=== PATIENT | female | born 1970 | race Caucasian/White ===

== ENCOUNTER → 2023-10-06 | Outpatient (REF) | LOC: M SLEEP HO 10:00 | PROVIDERS: ATTEND Physician Assistant | DX: Z53.9 Procedure and treatment not carried out, unspecified reason (principal); G47.33 Obstructive sleep apnea (adult) (pediatric) ==

== ENCOUNTER → 2024-07-19 | Outpatient (REF) | LOC: M SLEEP HO 11:00 | PROVIDERS: ATTEND Physician Assistant | DX: G47.33 Obstructive sleep apnea (adult) (pediatric) (principal) ==

== ENCOUNTER 2025-01-27 10:16 | Inpatient (IN) | payer MEDICARE, OTHER, SELFPAY ==
[2025-01-27] VITALS (97 sets, daily range): BP systolic 79–176; BP diastolic 41–95; TEMP 98.8–101.1; O2SAT 50–100
[~2025-01-27] VITALS: Ht 162.6 cm; Wt 81.1 kg
[2025-01-27] MEDS ORDERED: CALCIUM GLUCONATE 1,000MG/10ML VIAL (100MG/ML) As Ordered ONE (13:15)
[2025-01-27] MEDS: CALCIUM GLUCONATE 1,000MG/10ML VIAL (100MG/ML) IV ONE ×2 (13:15→13:20)
[2025-01-27] MEDS ORDERED: SODIUM BICARBONATE 8.4% INJ 50ML SYRINGE As Ordered ONE (13:15)
[2025-01-27] MEDS ORDERED: EPINEPHrine HCL INJ 1 MG in D5W 240 ML IV SCH (13:25)
[2025-01-27] MEDS ORDERED: MIDAZOLAM INJ 2MG/2ML VIAL IV SCH (13:25)
[2025-01-27] MEDS ORDERED: EPINEPHrine HCL INJ 16 MG in D5W 984 ML IV SCH (13:35)
[2025-01-27 13:54] LABS: ABG pH (ARTERIAL) 7.272 UNITS (7.350-7.450)
[2025-01-27 13:55] LABS: ABG BASE EXCESS -5.3 (-2.0-2.0); ABG HCO3 21.6 MMOL/L (22.0-26.0); ABG PARTIAL PRESSURE CO2 47.9 mmHg (35.0-45.0); ABG PARTIAL PRESSURE O2 74.9 mmHg (75.0-100.0); ABG TOTAL CO2 23.1 MMOL/L (22.0-29.0)
[2025-01-27 13:56] LABS: ABG O2 SATURATION 94.4 % (95.0-99.0)
[2025-01-27] MEDS ORDERED: MIDAZOLAM 100MG/100ML-0.9%NACL 100 MG in IV 1 EA IV SCH (14:00)
[2025-01-27 14:09] LABS: HEMATOCRIT 33.8 % (36.0-47.0); HEMOGLOBIN 11.4 g/dl (12.0-15.5); LYMPH # 0.2 10^3/uL (1.5-5.0); LYMPH % 20.4 % (24.0-44.0); MEAN CORPUSCULAR HEMOGLOBIN 27.5 pg (27.0-33.0); MEAN CORPUSCULAR HGB CONC 33.7 g/dl (32.0-36.5); MEAN CORPUSCULAR VOLUME 81.4 fl (80.0-96.0); MONO % 3.9 % (2.0-8.0); NEUTROPHILS % 73.7 % (36.0-66.0); PLATELET COUNT, AUTOMATED 133 10^3/uL (150-450); RED BLOOD COUNT 4.15 10^6/uL (4.00-5.40)
[2025-01-27 14:10] LABS: NEUTROPHILS # 0.8 10^3/uL (1.5-8.5)
[2025-01-27 14:19] LABS: INR 1.18; PROTHROMBIN TIME 15.3 SECONDS (12.5-14.5)
[2025-01-27 14:31] LABS: MAGNESIUM LEVEL 1.5 MG/DL (1.8-2.4)
[2025-01-27 14:34] LABS: THYROID STIMULATING HORMONE 0.768 uIU/ML (0.55-4.78)
[2025-01-27 14:46] LABS: BILIRUBIN,TOTAL 0.3 MG/DL (0.3-1.2); CALCIUM LEVEL 8.1 MG/DL (8.5-10.1); CREATININE FOR GFR 2.53 MG/DL (0.55-1.30); GLOMERULAR FILTRATION RATE 21.1 (>51); POTASSIUM SERUM 3.4 MMOL/L (3.5-5.1); TOTAL PROTEIN 4.7 G/DL (5.7-8.2)
[2025-01-27 15:14] LABS: KETONE, URINE AUTO RFX NEGATIVE (NEGATIVE); LEUKOCYTE ESTERASE UR AUTO RFX NEGATIVE (NEGATIVE); MUCUS, URINE RFX SMALL (NEGATIVE); NITRITE, URINE AUTO RFX NEGATIVE (NEGATIVE); RBC, URINE AUTO RFX 19 /HPF (0-3); SQUAM EPITHELIAL CELL UR AURFX 0 /HPF (0-6); WBC, URINE AUTO RFX 0 /HPF (0-3)
[2025-01-27] MEDS ORDERED: GLUCAGON INJ 1MG VIAL SC PRN (15:40)
[2025-01-27] MEDS ORDERED: DEXTROSE 50% 50ML SYRINGE IV PRN (15:40)
[2025-01-27] MEDS ORDERED: GLUCOSE 4 GM CHEW PO PRN (15:40)
[2025-01-27] MEDS: PIPERACILLIN/TAZOBACTAM SOD 4.5 GM in DEXTROSE 5% (D5W) ADV/MINI-BAG 50 ML IV SCH (15:44)
[2025-01-27] MEDS: MAG SULF 1GM/100ML (MAG RUN) 1 GM in IV 1 EA IV SCH (15:45)
[2025-01-27] MEDS: LR 1,000 ML IV ONE (15:57)
[2025-01-27] MEDS: NOREPINEPHRINE 4MG IN D5 250ML 4 MG in IV 1 EA IV SCH (15:58)
[2025-01-27] MEDS: SODIUM BICARBONATE 8.4% INJ 50ML SYRINGE IV STA (15:58)
[2025-01-27] MEDS ORDERED: FENTANYL DRIP LOCK BOX KEY 1 EACH XX PRN (16:20)
[2025-01-27] MEDS: CALCIUM GLUCONATE 1,000 MG in DEXTROSE 5% (D5W) MINI-BAG PLU 100 ML IV SCH (16:37)
[2025-01-27] MEDS ORDERED: VITA200020 PO (17:05)
[2025-01-27] MEDS ORDERED: LOSA25TA13 PO (17:05)
[2025-01-27] MEDS ORDERED: ALBU8.5H INH (17:05)
[2025-01-27] MEDS ORDERED: CYCL-707 PO (17:05)
[2025-01-27] MEDS ORDERED: B-12100010 PO (17:05)
[2025-01-27] MEDS ORDERED: ALLO100T PO (17:05)
[2025-01-27] MEDS ORDERED: FAMO1TAB11 PO (17:05)
[2025-01-27] MEDS ORDERED: RA N1TAB PO (17:05)
[2025-01-27] MEDS ORDERED: OMEG-28 PO (17:05)
[2025-01-27] MEDS ORDERED: AMIT100TA PO (17:05)
[2025-01-27] MEDS ORDERED: TRAZ-257 PO (17:05)
[2025-01-27] MEDS ORDERED: METF10004 PO (17:05)
[2025-01-27] MEDS ORDERED: FERR325T3 PO (17:05)
[2025-01-27] MEDS ORDERED: GABA-1635 PO (17:05)
[2025-01-27] MEDS ORDERED: FLON1SPR NARES (17:05)
[2025-01-27] MEDS ORDERED: PARO40TA2 PO (17:05)
[2025-01-27] MEDS ORDERED: MECL-86 PO (17:05)
[2025-01-27] MEDS ORDERED: ATOR80TA59 PO (17:05)
[2025-01-27] MEDS ORDERED: ONDA-83 PO (17:05)
[2025-01-27] MEDS ORDERED: FLAX1CAP5 PO (17:05)
[2025-01-27] MEDS ORDERED: JARD1TAB3 PO (17:05)
[2025-01-27] MEDS ORDERED: LEVOTAB10 PO (17:05)
[2025-01-27] MEDS ORDERED: ASPI-615 PO (17:05)
[2025-01-27] MEDS ORDERED: HOME MED LIST COMPLETE! XX SCH (17:10)
[2025-01-27] MEDS ORDERED: CALCIUM GLUCONATE 1,000 MG in DEXTROSE 5% (D5W) MINI-BAG PLU 100 ML IV ONE (17:15)
[2025-01-27] MEDS: INSULIN LISPRO (NovoLOG) PER UNIT SC SCH (17:18)
[2025-01-27] MEDS: VANCOMYCIN HCL 1,000 MG, VIAL MATE ADAPTER 1 EACH in NS 250 ML IV ONE (17:19)
[2025-01-27 17:23] LABS: ABG O2 SATURATION 95.3 % (95.0-99.0)
[2025-01-27 17:26] LABS: ABG BASE EXCESS -7.3 (-2.0-2.0); ABG HCO3 20.6 MMOL/L (22.0-26.0); ABG PARTIAL PRESSURE CO2 51.1 mmHg (35.0-45.0); ABG STANDARD HCO3 18.6 MMOL/L. (22.0-26.0); ABG TOTAL CO2 22.2 MMOL/L (22.0-29.0)
[2025-01-27 17:27] LABS: ABG pH (ARTERIAL) 7.224 UNITS (7.350-7.450)
[2025-01-27] MEDS ORDERED: VANCOMYCIN INTERMITTENT/PULSE DOSING BY CLINICAL PHARMACIST PER DOSING PROTOCOL XX SCH (19:00)
[2025-01-27] MEDS: PANTOPRAZOLE 40MG VIAL IV ONE (19:00)
[2025-01-27] MEDS: KCL 20MEQ IN 100ML SWI (KRUN) 20 MEQ in IV 1 EA IV ONE (19:00)
[2025-01-27 19:09] LABS: ABG O2 SATURATION 93.5 % (95.0-99.0); ABG PARTIAL PRESSURE O2 67.8 mmHg (75.0-100.0); ABG STANDARD HCO3 19.5 MMOL/L. (22.0-26.0); ABG TOTAL CO2 22.4 MMOL/L (22.0-29.0); ABG pH (ARTERIAL) 7.267 UNITS (7.350-7.450)
[2025-01-27 19:15] LABS: HEMATOCRIT 33.5 % (36.0-47.0); HEMOGLOBIN 11.4 g/dl (12.0-15.5); MEAN CORPUSCULAR HEMOGLOBIN 28.1 pg (27.0-33.0); MEAN CORPUSCULAR VOLUME 82.7 fl (80.0-96.0); RED BLOOD COUNT 4.05 10^6/uL (4.00-5.40); WHITE BLOOD COUNT 1.6 10^3/uL (4.0-10.0)
[2025-01-27 19:40] LABS: PLATELET COUNT, AUTOMATED 85 10^3/uL (150-450)
[2025-01-27 19:42] LABS: ALBUMIN 1.9 G/DL (3.2-5.2); BILIRUBIN,TOTAL 0.3 MG/DL (0.3-1.2); CALCIUM LEVEL 8.1 MG/DL (8.5-10.1); CREATININE FOR GFR 2.13 MG/DL (0.55-1.30); GLOMERULAR FILTRATION RATE 25.7 (>51); POTASSIUM SERUM 3.8 MMOL/L (3.5-5.1); TOTAL PROTEIN 4.9 G/DL (5.7-8.2)
[2025-01-27 20:04] LABS: ATYPICAL LYMPH 2 % (0-5); BASOPHILS 1 % (0-1); DOHLE BODIES 1+; LYMPHOCYTES 21 % (16-44); METAMYELOCYTES 10 % (0-0); MONOCYTES 6 % (0-5); MYELOCYTES 3 % (0-0); NEUTROPHILS 39 % (28-66); PLATELET ESTIMATE DECREASED (NORMAL); TOXIC VACUOLATION 1+
[2025-01-27] MEDS: VASOPRESSIN IN 0.9 % NACL 20 UNIT in IV 1 EA IV SCH (20:10)
[2025-01-27] MEDS: VANCOMYCIN HCL 500 MG in DEXTROSE 5% (D5W) MINI-BAG PLU 100 ML IV ONE (20:12)
[2025-01-27] MEDS: OSELTAMIVIR 6 MG/ML SUSP PO ONE (20:16)
[2025-01-27] MEDS: HEPARIN SOD (PORCINE) 5000UNITS/ML 1ML VIAL/SYRINGE SQ SCH (21:53)
[2025-01-27] MEDS: PIPERACILLIN/TAZOBACTAM SOD 3.375 GM in DEXTROSE 5% (D5W) ADV/MINI-BAG 50 ML IV SCH (22:11)
[2025-01-27] MEDS: ACETAMINOPHEN *IV* 1,000 MG in IV 1 EA IV ONE (23:59)
[2025-01-28] VITALS (60 sets, daily range): BP systolic 77–158; BP diastolic 41–60; TEMP 100–101.8; O2SAT 86–100
[2025-01-28] MEDS: MIDAZOLAM 100MG/100ML-0.9%NACL 100 MG in IV 1 EA IV SCH (03:06)
[2025-01-28 04:29] LABS: IONIZED CALCIUM 4.4 MG/DL (4.5-5.3)
[2025-01-28 04:34] LABS: HEMATOCRIT 34.5 % (36.0-47.0); HEMOGLOBIN 11.8 g/dl (12.0-15.5); MEAN CORPUSCULAR HEMOGLOBIN 27.6 pg (27.0-33.0); MEAN CORPUSCULAR HGB CONC 34.2 g/dl (32.0-36.5); MEAN CORPUSCULAR VOLUME 80.8 fl (80.0-96.0); RED BLOOD COUNT 4.27 10^6/uL (4.00-5.40); WHITE BLOOD COUNT 6.1 10^3/uL (4.0-10.0)
[2025-01-28 04:40] LABS: PLATELET COUNT, AUTOMATED 78 10^3/uL (150-450)
[2025-01-28 04:57] LABS: VANCOMYCIN RANDOM 18.3 UG/ML
[2025-01-28 05:00] LABS: ALBUMIN 1.7 G/DL (3.2-5.2); ALKALINE PHOSPHATASE 86 U/L (35-104); ALT/SGPT 21 U/L (7.0-40); AST/SGOT 51 U/L (<34); BILIRUBIN,TOTAL 0.3 MG/DL (0.3-1.2); BLOOD UREA NITROGEN 60 MG/DL (9-23); CALCIUM LEVEL 7.7 MG/DL (8.5-10.1); CARBON DIOXIDE LEVEL 23 MMOL/L (20-31); CHLORIDE LEVEL 106 MMOL/L (98-107); GLOMERULAR FILTRATION RATE 27.6 (>51); GLUCOSE, FASTING 177 MG/DL (60-100); MAGNESIUM LEVEL 2.4 MG/DL (1.8-2.4); PHOSPHORUS LEVEL 4.7 MG/DL (2.5-4.9); SODIUM LEVEL 142 MMOL/L (136-145); TOTAL PROTEIN 4.5 G/DL (5.7-8.2)
[2025-01-28 05:01] LABS: ANISOCYTOSIS 1+; ATYPICAL LYMPH 1 % (0-5); EOSINOPHILS 1 % (0-3); LYMPHOCYTES 14 % (16-44); METAMYELOCYTES 3 % (0-0); MONOCYTES 9 % (0-5); NEUTROPHILS 52 % (28-66); PLATELET ESTIMATE DECREASED (NORMAL); POIKILOCYTOSIS 1+
[2025-01-28 05:02] LABS: BURR CELLS 1+; DOHLE BODIES 1+; TOXIC VACUOLATION 1+
[2025-01-28 05:30] LABS: ABG BASE EXCESS -4.3 (-2.0-2.0); ABG HCO3 21.3 MMOL/L (22.0-26.0); ABG O2 SATURATION 96.4 % (95.0-99.0); ABG PARTIAL PRESSURE CO2 40.9 mmHg (35.0-45.0); ABG PARTIAL PRESSURE O2 97.5 mmHg (75.0-100.0); ABG STANDARD HCO3 20.9 MMOL/L. (22.0-26.0); ABG TOTAL CO2 22.5 MMOL/L (22.0-29.0); ABG pH (ARTERIAL) 7.334 UNITS (7.350-7.450)
[2025-01-28] MEDS: AZITHROMYCIN INJ 500 MG, VIAL MATE ADAPTER 1 EACH in NS 250 ML IV SCH (07:20)
[2025-01-28] MEDS ORDERED: VANCOMYCIN HCL 1,000 MG, VIAL MATE ADAPTER 1 EACH in NS 250 ML IV ONE (08:00)
[2025-01-28] MEDS: PANTOPRAZOLE 40MG VIAL IV SCH (08:39)
[2025-01-28] MEDS: VANCOMYCIN HCL 750 MG, VIAL MATE ADAPTER 1 EACH in NS 250 ML IV SCH (08:39)
[2025-01-28 08:47] LABS: PROCALCITONIN >50.00 ng/ml
[2025-01-28] MEDS: CALCIUM GLUCONATE 1,000 MG in DEXTROSE 5% (D5W) MINI-BAG PLU 100 ML IV ONE (10:02)
[2025-01-28] MEDS: OSELTAMIVIR 6 MG/ML SUSP PO SCH ×2 (10:24→20:34)
[2025-01-28] MEDS: POTASSIUM PHOSPHATE INJ 30 MMOL in D5W 500 ML IV ONE (12:11)
[2025-01-28] MEDS: fentaNYL CITRATE/NaCl 1,000 MCG in IV 1 EA IV SCH (13:38)
[2025-01-28] MEDS ORDERED: HEPARIN SOD (PORCINE) 5000UNITS/ML 1ML VIAL/SYRINGE IV PRN (14:05)
[2025-01-28] MEDS: HEPARIN DRIP 25,000 UNITS in IV 1 EA IV SCH (14:56)
[2025-01-28 17:02] LABS: ABG BASE EXCESS -4.1 (-2.0-2.0); ABG HCO3 20.9 MMOL/L (22.0-26.0); ABG O2 SATURATION 97.1 % (95.0-99.0); ABG PARTIAL PRESSURE CO2 37.8 mmHg (35.0-45.0); ABG PARTIAL PRESSURE O2 104.9 mmHg (75.0-100.0); ABG STANDARD HCO3 21.1 MMOL/L. (22.0-26.0)
[2025-01-28 17:03] LABS: IONIZED CALCIUM 4.4 MG/DL (4.5-5.3)
[2025-01-28 17:17] LABS: HEMATOCRIT 31.7 % (36.0-47.0); MEAN CORPUSCULAR HEMOGLOBIN 28.1 pg (27.0-33.0); MEAN CORPUSCULAR HGB CONC 34.7 g/dl (32.0-36.5); MEAN CORPUSCULAR VOLUME 80.9 fl (80.0-96.0); RED BLOOD COUNT 3.92 10^6/uL (4.00-5.40); WHITE BLOOD COUNT 10.3 10^3/uL (4.0-10.0)
[2025-01-28 17:36] LABS: ALBUMIN 1.6 G/DL (3.2-5.2); BILIRUBIN,TOTAL 0.3 MG/DL (0.3-1.2); CALCIUM LEVEL 7.6 MG/DL (8.5-10.1); CREATININE FOR GFR 1.82 MG/DL (0.55-1.30); GLOMERULAR FILTRATION RATE 30.8 (>51); MAGNESIUM LEVEL 2.3 MG/DL (1.8-2.4); POTASSIUM SERUM 4.2 MMOL/L (3.5-5.1); TOTAL PROTEIN 4.4 G/DL (5.7-8.2)
[2025-01-28 18:05] LABS: PLATELET COUNT, AUTOMATED 53 10^3/uL (150-450)
[2025-01-28 18:14] LABS: EOSINOPHILS 1 % (0-3); LYMPHOCYTES 7 % (16-44); METAMYELOCYTES 4 % (0-0); MONOCYTES 2 % (0-5); NEUTROPHILS 64 % (28-66)
[2025-01-28 18:15] LABS: BURR CELLS 1+; POLYCHROMASIA 1+
[2025-01-28 18:16] LABS: DOHLE BODIES 1+
[2025-01-28 18:18] LABS: HELMET CELLS 1+; PLATELET ESTIMATE DECREASED (NORMAL)
[2025-01-29] VITALS (90 sets, daily range): BP systolic 94–199; BP diastolic 35–79; TEMP 99.5–101.7; O2SAT 67–99
[2025-01-29] MEDS: ACETAMINOPHEN *IV* 1,000 MG in IV 1 EA IV ONE (05:42)
[2025-01-29 06:12] LABS: ABG BASE EXCESS -2.7 (-2.0-2.0); ABG HCO3 22.1 MMOL/L (22.0-26.0); ABG O2 SATURATION 95.4 % (95.0-99.0); ABG PARTIAL PRESSURE CO2 38.3 mmHg (35.0-45.0); ABG PARTIAL PRESSURE O2 86.8 mmHg (75.0-100.0); ABG STANDARD HCO3 22.2 MMOL/L. (22.0-26.0); ABG TOTAL CO2 23.3 MMOL/L (22.0-29.0); ABG pH (ARTERIAL) 7.379 UNITS (7.350-7.450)
[2025-01-29 06:18] LABS: HEMATOCRIT 30.4 % (36.0-47.0); HEMOGLOBIN 10.3 g/dl (12.0-15.5); MEAN CORPUSCULAR HEMOGLOBIN 27.5 pg (27.0-33.0); MEAN CORPUSCULAR HGB CONC 33.9 g/dl (32.0-36.5); MEAN CORPUSCULAR VOLUME 81.1 fl (80.0-96.0); RED BLOOD COUNT 3.75 10^6/uL (4.00-5.40)
[2025-01-29 06:23] LABS: PLATELET COUNT, AUTOMATED 41 10^3/uL (150-450)
[2025-01-29 06:45] LABS: ALBUMIN 1.5 G/DL (3.2-5.2); BILIRUBIN,TOTAL 0.4 MG/DL (0.3-1.2); CALCIUM LEVEL 7.9 MG/DL (8.5-10.1); CREATININE FOR GFR 1.63 MG/DL (0.55-1.30); POTASSIUM SERUM 3.4 MMOL/L (3.5-5.1); TOTAL PROTEIN 4.3 G/DL (5.7-8.2)
[2025-01-29 07:16] LABS: EOSINOPHILS 3 % (0-3); LYMPHOCYTES 3 % (16-44); MONOCYTES 1 % (0-5); NEUTROPHILS 86 % (28-66)
[2025-01-29 07:18] LABS: CRENATED RBC 1+; DOHLE BODIES 1+; PLATELET ESTIMATE MARKED DECREASE (NORMAL)
[2025-01-29 07:19] LABS: POIKILOCYTOSIS 1+
[2025-01-29] MEDS: VANCOMYCIN HCL 1,000 MG, VIAL MATE ADAPTER 1 EACH in NS 250 ML IV SCH (07:57)
[2025-01-29] MEDS: KCL 20MEQ IN 100ML SWI (KRUN) 20 MEQ in IV 1 EA IV ONE (09:27)
[2025-01-29] MEDS: ACETAMINOPHEN 325 MG TAB PO PRN (09:27)
[2025-01-29] MEDS: CEFEPIME HCL 2 GM in DEXTROSE 5% (D5W) ADV/MINI-BAG 50 ML IV SCH (10:34)
[2025-01-29] MEDS: HYDROCORTISONE 100MG/2ML VIAL IV ONE (14:45)
[2025-01-29] MEDS: LR 1,000 ML IV SCH (15:49)
[2025-01-29 16:49] LABS: IONIZED CALCIUM 4.6 MG/DL (4.5-5.3)
[2025-01-29 17:22] LABS: ALBUMIN 1.4 G/DL (3.2-5.2); BILIRUBIN,TOTAL 0.6 MG/DL (0.3-1.2); CALCIUM LEVEL 7.8 MG/DL (8.5-10.1); CREATININE FOR GFR 1.6 MG/DL (0.55-1.30); GLOMERULAR FILTRATION RATE 35.8 (>51); MAGNESIUM LEVEL 2.2 MG/DL (1.8-2.4); PHOSPHORUS LEVEL 4.2 MG/DL (2.5-4.9); POTASSIUM SERUM 3.9 MMOL/L (3.5-5.1); TOTAL PROTEIN 4.3 G/DL (5.7-8.2)
[2025-01-29 17:43] LABS: ABG BASE EXCESS -4.7 (-2.0-2.0); ABG HCO3 20.6 MMOL/L (22.0-26.0); ABG O2 SATURATION 98.1 % (95.0-99.0); ABG PARTIAL PRESSURE CO2 38.9 mmHg (35.0-45.0); ABG PARTIAL PRESSURE O2 167.3 mmHg (75.0-100.0); ABG STANDARD HCO3 20.6 MMOL/L. (22.0-26.0); ABG TOTAL CO2 21.8 MMOL/L (22.0-29.0); ABG pH (ARTERIAL) 7.342 UNITS (7.350-7.450)
[2025-01-29] MEDS: propofoL 1,000 MG in IV 1 EA IV SCH (18:31)
[2025-01-29] MEDS: HYDROCORTISONE 100MG/2ML VIAL IV SCH (21:01)
[2025-01-30] VITALS (57 sets, daily range): BP systolic 101–152; BP diastolic 41–66; TEMP 98.2–101.1; O2SAT 90–98
[2025-01-30 06:11] LABS: ABG HCO3 20.7 MMOL/L (22.0-26.0); ABG O2 SATURATION 93.3 % (95.0-99.0); ABG PARTIAL PRESSURE CO2 32.2 mmHg (35.0-45.0); ABG PARTIAL PRESSURE O2 70.7 mmHg (75.0-100.0); ABG STANDARD HCO3 21.9 MMOL/L. (22.0-26.0); ABG TOTAL CO2 21.7 MMOL/L (22.0-29.0); ABG pH (ARTERIAL) 7.426 UNITS (7.350-7.450)
[2025-01-30 06:22] LABS: HEMATOCRIT 28.9 % (36.0-47.0); HEMOGLOBIN 9.9 g/dl (12.0-15.5); MEAN CORPUSCULAR HEMOGLOBIN 28.1 pg (27.0-33.0); MEAN CORPUSCULAR HGB CONC 34.3 g/dl (32.0-36.5); MEAN CORPUSCULAR VOLUME 82.1 fl (80.0-96.0); RED BLOOD COUNT 3.52 10^6/uL (4.00-5.40); WHITE BLOOD COUNT 13.1 10^3/uL (4.0-10.0)
[2025-01-30 06:25] LABS: PLATELET COUNT, AUTOMATED 35 10^3/uL (150-450)
[2025-01-30 06:50] LABS: ALBUMIN 1.3 G/DL (3.2-5.2); BILIRUBIN,TOTAL 0.5 MG/DL (0.3-1.2); CREATININE FOR GFR 1.24 MG/DL (0.55-1.30); POTASSIUM SERUM 3.8 MMOL/L (3.5-5.1); TOTAL PROTEIN 4.3 G/DL (5.7-8.2)
[2025-01-30 06:58] LABS: LYMPHOCYTES 3 % (16-44); MONOCYTES 3 % (0-5); NEUTROPHILS 86 % (28-66); PLASMA CELL 1 % (0-0); PLATELET ESTIMATE MARKED DECREASE (NORMAL)
[2025-01-30 07:02] LABS: DOHLE BODIES 1+; POIKILOCYTOSIS 1+
[2025-01-30] MEDS: VANCOMYCIN HCL 500 MG in DEXTROSE 5% (D5W) MINI-BAG PLU 100 ML IV SCH (08:39)
[2025-01-30] MEDS: LanTUS (INSULIN GLARGINE INJ) 1 UNITS/0.01 ML SC SCH (08:44)
[2025-01-30] MEDS: PARoxetine 20MG TABLET PO SCH (09:18)
[2025-01-30] MEDS: LR 1,000 ML IV SCH (10:06)
[2025-01-31] VITALS (51 sets, daily range): BP systolic 87–215; BP diastolic 47–120; TEMP 100–101.3; O2SAT 87–100
[2025-01-31] MEDS: ACETAMINOPHEN *IV* 1,000 MG in IV 1 EA IV ONE (01:32)
[2025-01-31 05:22] LABS: ABG BASE EXCESS -3.1 (-2.0-2.0); ABG HCO3 21.3 MMOL/L (22.0-26.0); ABG O2 SATURATION 88.7 % (95.0-99.0); ABG PARTIAL PRESSURE CO2 35.7 mmHg (35.0-45.0); ABG PARTIAL PRESSURE O2 59.4 mmHg (75.0-100.0); ABG STANDARD HCO3 21.7 MMOL/L. (22.0-26.0); ABG TOTAL CO2 22.4 MMOL/L (22.0-29.0); ABG pH (ARTERIAL) 7.394 UNITS (7.350-7.450)
[2025-01-31 07:00] LABS: BASO % 0.3 % (0.0-1.0); EOS % 0.1 % (0.0-3.0); HEMATOCRIT 28.9 % (36.0-47.0); HEMOGLOBIN 9.6 g/dl (12.0-15.5); LYMPH # 0.5 10^3/uL (1.5-5.0); LYMPH % 4.4 % (24.0-44.0); MEAN CORPUSCULAR HEMOGLOBIN 27.7 pg (27.0-33.0); MEAN CORPUSCULAR HGB CONC 33.2 g/dl (32.0-36.5); MEAN CORPUSCULAR VOLUME 83.5 fl (80.0-96.0); MONO # 0.3 10^3/uL (0.0-0.8); MONO % 2.5 % (2.0-8.0); NEUTROPHILS # 10.2 10^3/uL (1.5-8.5); NEUTROPHILS % 89.2 % (36.0-66.0); RED BLOOD COUNT 3.46 10^6/uL (4.00-5.40); WHITE BLOOD COUNT 11.4 10^3/uL (4.0-10.0)
[2025-01-31 07:11] LABS: PLATELET COUNT, AUTOMATED 54 10^3/uL (150-450)
[2025-01-31 07:24] LABS: VANCOMYCIN LEVEL TROUGH 14.9 UG/ML (10.0-20.0)
[2025-01-31 07:25] LABS: ALBUMIN 1.3 G/DL (3.2-5.2); BILIRUBIN,TOTAL 0.4 MG/DL (0.3-1.2); CALCIUM LEVEL 8.3 MG/DL (8.5-10.1); CREATININE FOR GFR 1.35 MG/DL (0.55-1.30); GLOMERULAR FILTRATION RATE 43.5 (>51); PHOSPHORUS LEVEL 3.4 MG/DL (2.5-4.9); POTASSIUM SERUM 3.6 MMOL/L (3.5-5.1); TOTAL PROTEIN 4.5 G/DL (5.7-8.2)
[2025-01-31] MEDS ORDERED: LIDOCAINE 1% MDV 20ML VIAL As Ordered ONE (09:20)
[2025-01-31] MEDS ORDERED: MIDAZOLAM INJ 2MG/2ML VIAL As Ordered ONE (09:30)
[2025-01-31] MEDS: FUROSEMIDE 100MG/10ML VIAL IV ONE (09:36)
[2025-01-31] MEDS: LanTUS (INSULIN GLARGINE INJ) 1 UNITS/0.01 ML SC SCH (09:37)
[2025-01-31] MEDS: MIDAZOLAM INJ 2MG/2ML VIAL IV ONE ×2 (10:17→10:18)
[2025-01-31 10:18] LABS: PROCALCITONIN 39.1 ng/ml
[2025-01-31] MEDS: LIDOCAINE 1% MDV 20ML VIAL INJ ONE (10:18)
[2025-01-31] MEDS: PARoxetine 10MG/5ML SUSP ORAL SYRINGE *DRAW UP EXACT DOSE TF SCH (12:29)
[2025-01-31] MEDS: MAG SULF 1GM/100ML (MAG RUN) 1 GM in IV 1 EA IV ONE (12:46)
[2025-01-31] MEDS: KCL 20MEQ IN 100ML SWI (KRUN) 20 MEQ in IV 1 EA IV SCH (13:00)
[2025-01-31] MEDS: HYDROCORTISONE 100MG/2ML VIAL IV SCH (17:16)
[2025-01-31 17:44] LABS: ABG BASE EXCESS -3.2 (-2.0-2.0); ABG HCO3 19.8 MMOL/L (22.0-26.0); ABG O2 SATURATION 91.4 % (95.0-99.0); ABG PARTIAL PRESSURE CO2 28.8 mmHg (35.0-45.0); ABG PARTIAL PRESSURE O2 61.2 mmHg (75.0-100.0); ABG STANDARD HCO3 21.7 MMOL/L. (22.0-26.0); ABG TOTAL CO2 20.7 MMOL/L (22.0-29.0); ABG pH (ARTERIAL) 7.455 UNITS (7.350-7.450)
[2025-01-31 18:12] LABS: CALCIUM LEVEL 8.8 MG/DL (8.5-10.1); CREATININE FOR GFR 1.3 MG/DL (0.55-1.30); GLOMERULAR FILTRATION RATE 45.4 (>51); POTASSIUM SERUM 3.8 MMOL/L (3.5-5.1)
[2025-02-01] VITALS (36 sets, daily range): BP systolic 98–300; BP diastolic 53–300; TEMP 97.2–101.3; O2SAT 90–100
[2025-02-01 04:58] LABS: IONIZED CALCIUM 5.1 MG/DL (4.5-5.3)
[2025-02-01 05:05] LABS: ABG BASE EXCESS 0.2 (-2.0-2.0); ABG HCO3 23.2 MMOL/L (22.0-26.0); ABG O2 SATURATION 91.5 % (95.0-99.0); ABG PARTIAL PRESSURE CO2 32.3 mmHg (35.0-45.0); ABG STANDARD HCO3 24.6 MMOL/L. (22.0-26.0); ABG TOTAL CO2 24.2 MMOL/L (22.0-29.0); ABG pH (ARTERIAL) 7.475 UNITS (7.350-7.450)
[2025-02-01 05:07] LABS: BASO % 0.2 % (0.0-1.0); EOS # 0.1 10^3/uL (0.0-0.5); EOS % 0.5 % (0.0-3.0); HEMATOCRIT 32.3 % (36.0-47.0); HEMOGLOBIN 10.7 g/dl (12.0-15.5); LYMPH # 0.7 10^3/uL (1.5-5.0); LYMPH % 6.7 % (24.0-44.0); MEAN CORPUSCULAR HEMOGLOBIN 27.7 pg (27.0-33.0); MEAN CORPUSCULAR HGB CONC 33.1 g/dl (32.0-36.5); MEAN CORPUSCULAR VOLUME 83.7 fl (80.0-96.0); MONO # 0.3 10^3/uL (0.0-0.8); MONO % 2.6 % (2.0-8.0); NEUTROPHILS # 8.9 10^3/uL (1.5-8.5); NEUTROPHILS % 86.8 % (36.0-66.0); RED BLOOD COUNT 3.86 10^6/uL (4.00-5.40); WHITE BLOOD COUNT 10.3 10^3/uL (4.0-10.0)
[2025-02-01 05:12] LABS: PLATELET COUNT, AUTOMATED 89 10^3/uL (150-450)
[2025-02-01 05:30] LABS: ALBUMIN 1.4 G/DL (3.2-5.2); BILIRUBIN,TOTAL 0.4 MG/DL (0.3-1.2); CALCIUM LEVEL 8.8 MG/DL (8.5-10.1); CREATININE FOR GFR 1.1 MG/DL (0.55-1.30); GLOMERULAR FILTRATION RATE 55.1 (>51); MAGNESIUM LEVEL 1.8 MG/DL (1.8-2.4); PHOSPHORUS LEVEL 2.2 MG/DL (2.5-4.9); POTASSIUM SERUM 3.5 MMOL/L (3.5-5.1)
[2025-02-01] MEDS: fentaNYL 100 MCG/2 ML INJECTION IV PRN (07:57)
[2025-02-01] MEDS: MAG SULF 1GM/100ML (MAG RUN) 1 GM in IV 1 EA IV ONE (08:04)
[2025-02-01] MEDS: FUROSEMIDE 100MG/10ML VIAL IV ONE (08:06)
[2025-02-01] MEDS: KCL 20MEQ IN 100ML SWI (KRUN) 20 MEQ in IV 1 EA IV SCH (08:06)
[2025-02-01] MEDS ORDERED: hydrALAZINE 20MG/ML 1ML VIAL IV PRN (08:45)
[2025-02-01] MEDS: LanTUS (INSULIN GLARGINE INJ) 1 UNITS/0.01 ML SC SCH (08:48)
[2025-02-01] MEDS: ACETAMINOPHEN *IV* 1,000 MG in IV 1 EA IV SCH (09:02)
[2025-02-01] MEDS: POTASSIUM PHOSPHATE INJ 20 MMOL in D5W 250 ML IV ONE (10:37)
[2025-02-01 12:43] LABS: ABG BASE EXCESS -1.4 (-2.0-2.0); ABG HCO3 21.7 MMOL/L (22.0-26.0); ABG O2 SATURATION 96.3 % (95.0-99.0); ABG PARTIAL PRESSURE CO2 31.7 mmHg (35.0-45.0); ABG PARTIAL PRESSURE O2 90.7 mmHg (75.0-100.0); ABG STANDARD HCO3 23.3 MMOL/L. (22.0-26.0); ABG TOTAL CO2 22.7 MMOL/L (22.0-29.0); ABG pH (ARTERIAL) 7.454 UNITS (7.350-7.450)
[2025-02-01] MEDS: HEPARIN SOD (PORCINE) 5000UNITS/ML 1ML VIAL/SYRINGE SQ SCH (14:00)
[2025-02-01] MEDS: MIDAZOLAM 5MG/ML 1ML VIAL IV ONE (18:23)
[2025-02-01] MEDS: CEFEPIME HCL 2 GM in DEXTROSE 5% (D5W) ADV/MINI-BAG 50 ML IV SCH (18:42)
[2025-02-01 19:10] LABS: BLOOD UREA NITROGEN 58 MG/DL (9-23); CARBON DIOXIDE LEVEL 26 MMOL/L (20-31); CHLORIDE LEVEL 113 MMOL/L (98-107); CREATININE FOR GFR 0.94 MG/DL (0.55-1.30); GLOMERULAR FILTRATION RATE > 60.0 (>51); GLUCOSE, FASTING 186 MG/DL (60-100); MAGNESIUM LEVEL 1.8 MG/DL (1.8-2.4); PHOSPHORUS LEVEL 2.5 MG/DL (2.5-4.9); POTASSIUM SERUM 3.3 MMOL/L (3.5-5.1); SODIUM LEVEL 151 MMOL/L (136-145)
[2025-02-01] MEDS: KCL 20MEQ IN 100ML SWI (KRUN) 20 MEQ in IV 1 EA IV ONE (19:53)
[2025-02-01] MEDS: OSELTAMIVIR 6 MG/ML SUSP PO SCH (21:10)
[2025-02-02] VITALS (31 sets, daily range): BP systolic 87–173; BP diastolic 46–83; TEMP 97.2–99; O2SAT 91–96
[2025-02-02 04:46] LABS: ABG BASE EXCESS 1.9 (-2.0-2.0); ABG HCO3 24.4 MMOL/L (22.0-26.0); ABG O2 SATURATION 97.6 % (95.0-99.0); ABG PARTIAL PRESSURE CO2 31.5 mmHg (35.0-45.0); ABG PARTIAL PRESSURE O2 106.6 mmHg (75.0-100.0); ABG STANDARD HCO3 26.2 MMOL/L. (22.0-26.0); ABG TOTAL CO2 25.4 MMOL/L (22.0-29.0); ABG pH (ARTERIAL) 7.507 UNITS (7.350-7.450)
[2025-02-02 04:47] LABS: HEMATOCRIT 35.5 % (36.0-47.0); HEMOGLOBIN 11.7 g/dl (12.0-15.5); IONIZED CALCIUM 5.3 MG/DL (4.5-5.3); MEAN CORPUSCULAR HEMOGLOBIN 27.9 pg (27.0-33.0); MEAN CORPUSCULAR VOLUME 84.5 fl (80.0-96.0); WHITE BLOOD COUNT 13.9 10^3/uL (4.0-10.0)
[2025-02-02 04:58] LABS: PLATELET COUNT, AUTOMATED 195 10^3/uL (150-450)
[2025-02-02 05:19] LABS: ALBUMIN 1.5 G/DL (3.2-5.2); ALKALINE PHOSPHATASE 255 U/L (35-104); ALT/SGPT 54 U/L (7.0-40); AST/SGOT 51 U/L (<34); BILIRUBIN,TOTAL 0.4 MG/DL (0.3-1.2); BLOOD UREA NITROGEN 51 MG/DL (9-23); CALCIUM LEVEL 8.9 MG/DL (8.5-10.1); CARBON DIOXIDE LEVEL 24 MMOL/L (20-31); CHLORIDE LEVEL 115 MMOL/L (98-107); CREATININE FOR GFR 0.85 MG/DL (0.55-1.30); GLOMERULAR FILTRATION RATE > 60.0 (>51); GLUCOSE, FASTING 286 MG/DL (60-100); MAGNESIUM LEVEL 1.7 MG/DL (1.8-2.4); PHOSPHORUS LEVEL 2.4 MG/DL (2.5-4.9); POTASSIUM SERUM 3.6 MMOL/L (3.5-5.1); SODIUM LEVEL 150 MMOL/L (136-145); TOTAL PROTEIN 5.1 G/DL (5.7-8.2)
[2025-02-02 05:43] LABS: EOSINOPHILS 1 % (0-3); LYMPHOCYTES 5 % (16-44); MONOCYTES 3 % (0-5); NEUTROPHILS 91 % (28-66)
[2025-02-02 05:44] LABS: PLATELET ESTIMATE NORMAL (NORMAL)
[2025-02-02] MEDS: MAG SULF 1GM/100ML (MAG RUN) 1 GM in IV 1 EA IV ONE ×2 (06:00→18:41)
[2025-02-02] MEDS ORDERED: LIDOCAINE 1% MDV 20ML VIAL IM ONE (10:20)
[2025-02-02] MEDS: MIDAZOLAM INJ 2MG/2ML VIAL IV ONE (11:13)
[2025-02-02] MEDS: LIDOCAINE 1% MDV 20ML VIAL XX ONE (11:23)
[2025-02-02] MEDS: POTASSIUM PHOSPHATE INJ 30 MMOL in D5W 500 ML IV ONE (11:45)
[2025-02-02 18:25] LABS: BLOOD UREA NITROGEN 45 MG/DL (9-23); CALCIUM LEVEL 8.5 MG/DL (8.5-10.1); CARBON DIOXIDE LEVEL 26 MMOL/L (20-31); CHLORIDE LEVEL 115 MMOL/L (98-107); CREATININE FOR GFR 0.85 MG/DL (0.55-1.30); GLOMERULAR FILTRATION RATE > 60.0 (>51); GLUCOSE, FASTING 299 MG/DL (60-100); MAGNESIUM LEVEL 1.7 MG/DL (1.8-2.4); PHOSPHORUS LEVEL 2.9 MG/DL (2.5-4.9); POTASSIUM SERUM 3.4 MMOL/L (3.5-5.1); SODIUM LEVEL 151 MMOL/L (136-145)
[2025-02-02] MEDS: LanTUS (INSULIN GLARGINE INJ) 1 UNITS/0.01 ML SC ONE (18:42)
[2025-02-02] MEDS: KCL 20MEQ IN 100ML SWI (KRUN) 20 MEQ in IV 1 EA IV SCH (19:40)
[2025-02-02 21:17] LABS: ABG BASE EXCESS 1.9 (-2.0-2.0); ABG HCO3 24.2 MMOL/L (22.0-26.0); ABG O2 SATURATION 94.4 % (95.0-99.0); ABG PARTIAL PRESSURE CO2 30.3 mmHg (35.0-45.0); ABG PARTIAL PRESSURE O2 72.5 mmHg (75.0-100.0); ABG STANDARD HCO3 26.1 MMOL/L. (22.0-26.0); ABG TOTAL CO2 25.2 MMOL/L (22.0-29.0); ABG pH (ARTERIAL) 7.521 UNITS (7.350-7.450)
[2025-02-03] VITALS (64 sets, daily range): BP systolic 89–185; BP diastolic 33–83; TEMP 97.8–100; O2SAT 84–97
[2025-02-03 04:30] LABS: ABG BASE EXCESS -0.7 (-2.0-2.0); ABG HCO3 21.9 MMOL/L (22.0-26.0); ABG O2 SATURATION 95.9 % (95.0-99.0); ABG PARTIAL PRESSURE CO2 29.1 mmHg (35.0-45.0); ABG PARTIAL PRESSURE O2 86.2 mmHg (75.0-100.0); ABG STANDARD HCO3 23.9 MMOL/L. (22.0-26.0); ABG TOTAL CO2 22.8 MMOL/L (22.0-29.0); ABG pH (ARTERIAL) 7.494 UNITS (7.350-7.450)
[2025-02-03 04:31] LABS: IONIZED CALCIUM 5.1 MG/DL (4.5-5.3)
[2025-02-03 05:01] LABS: ALBUMIN 1.3 G/DL (3.2-5.2); ALKALINE PHOSPHATASE 177 U/L (35-104); ALT/SGPT 44 U/L (7.0-40); AST/SGOT 41 U/L (<34); BILIRUBIN,TOTAL 0.3 MG/DL (0.3-1.2); BLOOD UREA NITROGEN 41 MG/DL (9-23); CALCIUM LEVEL 8.4 MG/DL (8.5-10.1); CARBON DIOXIDE LEVEL 26 MMOL/L (20-31); CHLORIDE LEVEL 116 MMOL/L (98-107); CREATININE FOR GFR 0.84 MG/DL (0.55-1.30); GLOMERULAR FILTRATION RATE > 60.0 (>51); GLUCOSE, FASTING 207 MG/DL (60-100); MAGNESIUM LEVEL 1.8 MG/DL (1.8-2.4); PHOSPHORUS LEVEL 2.2 MG/DL (2.5-4.9); POTASSIUM SERUM 3.4 MMOL/L (3.5-5.1); SODIUM LEVEL 150 MMOL/L (136-145); TOTAL PROTEIN 4.5 G/DL (5.7-8.2)
[2025-02-03 05:09] LABS: BASO % 0.1 % (0.0-1.0); EOS # 0.4 10^3/uL (0.0-0.5); EOS % 2.9 % (0.0-3.0); HEMATOCRIT 31.3 % (36.0-47.0); HEMOGLOBIN 9.9 g/dl (12.0-15.5); LYMPH # 2.4 10^3/uL (1.5-5.0); LYMPH % 16.9 % (24.0-44.0); MEAN CORPUSCULAR HEMOGLOBIN 27.3 pg (27.0-33.0); MEAN CORPUSCULAR HGB CONC 31.6 g/dl (32.0-36.5); MEAN CORPUSCULAR VOLUME 86.2 fl (80.0-96.0); MONO # 0.3 10^3/uL (0.0-0.8); MONO % 1.8 % (2.0-8.0); NEUTROPHILS # 10.5 10^3/uL (1.5-8.5); NEUTROPHILS % 75.6 % (36.0-66.0); PLATELET COUNT, AUTOMATED 291 10^3/uL (150-450); RED BLOOD COUNT 3.63 10^6/uL (4.00-5.40); WHITE BLOOD COUNT 13.9 10^3/uL (4.0-10.0)
[2025-02-03] MEDS: KCL 20MEQ IN 100ML SWI (KRUN) 20 MEQ in IV 1 EA IV ONE (05:39)
[2025-02-03] MEDS: MAG SULF 1GM/100ML (MAG RUN) 1 GM in IV 1 EA IV SCH (08:06)
[2025-02-03] MEDS: LanTUS (INSULIN GLARGINE INJ) 1 UNITS/0.01 ML SC SCH (08:07)
[2025-02-03] MEDS: POTASSIUM PHOSPHATE INJ 30 MMOL in D5W 500 ML IV ONE (10:43)
[2025-02-03] MEDS: LR 1,000 ML IV ONE (12:30)
[2025-02-03] MEDS ORDERED: CALCIUM CHLORIDE 10% 1 GM/10 ML SYR As Ordered ONE (12:36)
[2025-02-03] MEDS: SODIUM BICARBONATE 8.4% INJ 50ML SYRINGE IV STA (12:37)
[2025-02-03] MEDS: CALCIUM CHLORIDE 10% 1 GM/10 ML SYR IV STA (12:37)
[2025-02-03] MEDS: DOBUTamine HCL 500,000 MCG in IV 1 EA IV STA (12:37)
[2025-02-03] MEDS ORDERED: DOBUTamine 500 MG/250 ML BAG IN D5W (2,000 MCG/ML) As Ordered ONE (12:39)
[2025-02-03] MEDS ORDERED: HYDROCORTISONE 100MG/2ML VIAL As Ordered ONE (12:42)
[2025-02-03] MEDS: EPINEPHrine 1MG/10ML SYRINGE 1.5IN IV STA (12:44)
[2025-02-03] MEDS: MIDAZOLAM INJ 2MG/2ML VIAL IV STA ×2 (13:35)
[2025-02-03] MEDS: HYDROCORTISONE 100MG/2ML VIAL IV STA (13:35)
[2025-02-03] MEDS: ROCURONIUM BROMIDE 50MG/5ML VIAL IV ONE (13:35)
[2025-02-03] MEDS: MIDAZOLAM INJ 2MG/2ML VIAL IV PRN (16:57)
[2025-02-03 18:28] LABS: BLOOD UREA NITROGEN 38 MG/DL (9-23); CALCIUM LEVEL 8.7 MG/DL (8.5-10.1); CARBON DIOXIDE LEVEL 27 MMOL/L (20-31); CHLORIDE LEVEL 113 MMOL/L (98-107); CREATININE FOR GFR 0.93 MG/DL (0.55-1.30); GLOMERULAR FILTRATION RATE > 60.0 (>51); GLUCOSE, FASTING 355 MG/DL (60-100); PHOSPHORUS LEVEL 5.1 MG/DL (2.5-4.9); POTASSIUM SERUM 4.6 MMOL/L (3.5-5.1); SODIUM LEVEL 148 MMOL/L (136-145)
[2025-02-03] MEDS: NOREPINEPHRINE 4MG IN D5 250ML 4 MG in IV 1 EA IV SCH (18:51)
[2025-02-03] MEDS ORDERED: HEPARIN SOD (PORCINE) 5000UNITS/ML 1ML VIAL/SYRINGE SQ SCH ×2 (22:00)
[2025-02-03] MEDS ORDERED: SCOPOLAMINE 1MG TRANSDERMAL PATCH TOP PRN (22:20)
[2025-02-03] MEDS ORDERED: FLEET ENEMA PR PRN (22:20)
[2025-02-03] MEDS ORDERED: MORPHINE 2 MG/ML 1ML VIAL IV PRN (22:20)
[2025-02-03] MEDS ORDERED: LORazepam 2 MG/ML 1ML VIAL IV PRN (22:20)
[2025-02-03] MEDS ORDERED: propofoL 1,000 MG in IV 1 EA IV SCH (23:25)
[2025-02-03] MEDS ORDERED: MIDAZOLAM INJ 2MG/2ML VIAL IV PRN (23:25)
[2025-02-03] MEDS ORDERED: NOREPINEPHRINE 4MG IN D5 250ML 4 MG in IV 1 EA IV SCH (23:25)
[2025-02-04] VITALS (7 sets, daily range): BP systolic 100–163; BP diastolic 48–56; O2SAT 91–97
[2025-02-04] MEDS ORDERED: INSULIN LISPRO (NovoLOG) PER UNIT SC SCH
[2025-02-04] MEDS: LORazepam 2 MG/ML 1ML VIAL IV PRN (01:30)
[2025-02-04] MEDS: MORPHINE 2 MG/ML 1ML VIAL IV PRN (01:35)
[2025-02-04] MEDS: SCOPOLAMINE 1MG TRANSDERMAL PATCH TOP PRN (01:38)
[2025-02-04] MEDS ORDERED: LORazepam 2 MG/ML 1ML VIAL IV PRN (01:45)
[2025-02-04] MEDS ORDERED: MORPHINE 2 MG/ML 1ML VIAL IV PRN (01:45)
[2025-02-04] MEDS ORDERED: ATROPINE SULFATE 1% OPHTH SOLN 2ML BTL SL PRN (01:45)
[2025-02-04] MEDS: MIDAZOLAM INJ 2MG/2ML VIAL IV PRN (01:53)
[2025-02-04] MEDS ORDERED: CEFEPIME HCL 2 GM in DEXTROSE 5% (D5W) ADV/MINI-BAG 50 ML IV SCH (02:00)
[2025-02-04] MEDS ORDERED: LanTUS (INSULIN GLARGINE INJ) 1 UNITS/0.01 ML SC SCH (09:00)
[2025-02-04] MEDS ORDERED: PARoxetine 10MG/5ML SUSP ORAL SYRINGE *DRAW UP EXACT DOSE TF SCH (09:00)
[2025-02-04] MEDS ORDERED: PANTOPRAZOLE 40MG VIAL IV SCH (09:00)
== END 2025-02-04 04:10 | disposition expired | DRG 871 ==
LOC: M ICU 13:09
PROVIDERS: ADMIT Internal Medicine Pulmonary Disease; ATTEND Internal Medicine Pulmonary Disease
PROC: 06HM33Z Insertion of Infusion Device into Right Femoral Vein, Percutaneous Approach (ICD-10-PCS; principal; 2025-01-27)
PROC: 04HY32Z Insertion of Monitoring Device into Lower Artery, Percutaneous Approach (ICD-10-PCS; 2025-01-27)
PROC: B246ZZZ Ultrasonography of Right and Left Heart (ICD-10-PCS; 2025-01-27)
PROC: 04HY32Z Insertion of Monitoring Device into Lower Artery, Percutaneous Approach (ICD-10-PCS; 2025-01-28)
PROC: 06HN33Z Insertion of Infusion Device into Left Femoral Vein, Percutaneous Approach (ICD-10-PCS; 2025-01-28)
PROC: 0B9M8ZZ Drainage of Bilateral Lungs, Via Natural or Artificial Opening Endoscopic (ICD-10-PCS; 2025-01-31)
PROC: 0B988ZZ Drainage of Left Upper Lobe Bronchus, Via Natural or Artificial Opening Endoscopic (ICD-10-PCS; 2025-02-02)
PROC: 0W9930Z Drainage of Right Pleural Cavity with Drainage Device, Percutaneous Approach (ICD-10-PCS; 2025-02-03)
DX: A41.9 Sepsis, unspecified organism (principal); R65.21 Severe sepsis with septic shock; J93.0 Spontaneous tension pneumothorax; J10.00 Influenza due to other identified influenza virus with unspecified type of pneumonia; J18.9 Pneumonia, unspecified organism; J80 Acute respiratory distress syndrome; N17.9 Acute kidney failure, unspecified; E87.20 Acidosis, unspecified; I96 Gangrene, not elsewhere classified; E87.1 Hypo-osmolality and hyponatremia; D69.6 Thrombocytopenia, unspecified; E11.22 Type 2 diabetes mellitus with diabetic chronic kidney disease; E11.42 Type 2 diabetes mellitus with diabetic polyneuropathy; E83.39 Other disorders of phosphorus metabolism; E83.42 Hypomagnesemia; E83.51 Hypocalcemia; Z51.5 Encounter for palliative care; Z66 Do not resuscitate; E66.9 Obesity, unspecified; E87.6 Hypokalemia; G47.33 Obstructive sleep apnea (adult) (pediatric); I12.9 Hypertensive chronic kidney disease with stage 1 through stage 4 chronic kidney disease, or unspecified chronic kidney disease; I25.2 Old myocardial infarction; K21.9 Gastro-esophageal reflux disease without esophagitis; M79.7 Fibromyalgia; N18.9 Chronic kidney disease, unspecified; F32.A Depression, unspecified; K58.0 Irritable bowel syndrome with diarrhea; F17.290 Nicotine dependence, other tobacco product, uncomplicated; Z88.2 Allergy status to sulfonamides; Z79.84 Long term (current) use of oral hypoglycemic drugs